=== PATIENT | male | born 1980 | race African-American/Black ===

== ENCOUNTER 2021-07-12 21:47 | Emergency (ER) | payer SELFPAY ==
--- NOTE | 2021-07-12 21:58 | NUR ---
Patient was called to be triaged at the waiting room but stated "I change my mind, I don't want to be seen anymore." PATIENT LEFT WITHOUT BEING TRIAGED OR SEEN BY ERMD.
== END 2021-07-12 22:00 | disposition left against medical advice (07) ==
LOC: ER 21:49
DX: Z53.21 Procedure and treatment not carried out due to patient leaving prior to being seen by health care provider (principal)